=== PATIENT | male | born 1960 | race Caucasian/White ===

== ENCOUNTER → 2021-05-16 | Outpatient (CLI) | payer BC ==
[~2021-05-16] MED LIST: CASIRIVIMAB/IMDEVIMAB (EUA) 1,200 MG in SODIUM CHLORIDE 0.9% 100 ML IVPB ONE; SODIUM CHLORIDE 0.9% 50 ML IVPB ONE; SODIUM CHLORIDE 0.9% 500 ML 500 ML in EMPTY BAG 1 BAG IV PRN
[2021-05-16 13:53] VITALS: RESP 16; TEMP 98.1
[2021-05-16 14:29] VITALS: PULSE 71
[2021-05-16 15:15] VITALS: BP 125/74
== END ==
LOC: PROCWHC3 13:39
PROVIDERS: ATTEND Family Medicine
DX: U07.1 COVID-19 (principal); E66.9 Obesity, unspecified; Z68.30 Body mass index [BMI] 30.0-30.9, adult
CPT/HCPCS: 96360; Q0243; M0243; 96361

== ENCOUNTER → 2024-09-28 | Outpatient (CLI) | payer BC ==
--- NOTE | 2024-09-28 10:08 | CT ---
EXAMINATION TYPE: CT chest wo con DATE OF EXAM: 09/28/2024 9:54 AM COMPARISON: None CLINICAL INDICATION: Male, 64 years old with history of R91.8 OTHER NONSPECIFIC ABNORMAL FINDING OF L JACEK F; PHH, Pneumonia. TECHNIQUE: Multiple axial images were obtained through the chest. Sagittal and coronal reformats were created for review. MIP was performed on a separate workstation. Contrast used: mL of (None if empty) Oral contrast used: (None if empty) CT DLP: 446.4 mGycm, Automated exposure control for dose reduction was used. FINDINGS: LUNGS/ PLEURA: No focal consolidation, pneumothorax or pleural effusion. AIRWAY: Patent and unremarkable. HEART: Size within normal limits. No significant coronary artery calcifications. MEDIASTINUM: No gross evidence of adenopathy. VASCULATURE: No aortic aneurysm. MUSCULOSKELETAL: No acute osseous abnormalities SOFT TISSUES/LYMPH NODES: Fat stranding changes in the left axilla with multiple lymph nodes present. LOWER NECK: No significant findings. UPPER ABDOMEN: No significant findings. IMPRESSION: 1. No evidence for acute process. No evidence for pneumonia. 2. Left axillary fat stranding around some lymph nodes correlate for adenitis. Clinical correlation advised. Correlate with recent immunization. Follow up recommendations for incidental pulmonary nodules, if there are any, are per [employer] or [employer]. https://radiopaedia.org/articles/hthiymuhxa-hxijzkc-[email or web address]-lddufi-[email or web address]-[email or web address]?lang=us [email or web address], , 09/28/2024 10:05 AM
== END | disposition home or self-care (01) ==
LOC: RADCTMAIN 09:40
PROVIDERS: ATTEND Emergency Medicine
DX: R91.8 Other nonspecific abnormal finding of lung field (principal)
CPT/HCPCS: 71250